=== PATIENT | female | born 1980 | race African-American/Black ===

== ENCOUNTER 2023-12-10 18:05 | Emergency (ER) | payer MEDICARE, SELFPAY ==
[2023-12-10 18:16] VITALS: BP 139/90
[2023-12-10 18:25] LABS: Glucose - Point of Care 442 mg/dl (70-99)
[2023-12-10 18:55] LABS: % Basophils 0.4 % (0-2); % Eosinophils 0.3 % (0-6); % Immature Granulocytes 0.5 % (0-0.5); % Monocytes 4.2 % (1.7-9.3); % Neutrophils 56.6 % (42.2-75.2); Absolute Immature Granulocytes 0.1 10^3/uL (0-0.05); Absolute Lymphocytes 3.9 10^3/uL (1.2-3.4); Absolute Monocytes 0.4 10^3/uL (0.1-0.6); Absolute Neutrophils 5.8 10^3/uL (1.4-6.5); Hematocrit 40.1 % (37.0-47.0); Hemoglobin 13.3 g/dL (12.0-16.0); Mean Corp Hgb Conc. 33.2 g/dL (33.0-37.0); Mean Corpuscular Hgb 25.9 pg (27.0-31.0); Mean Corpuscular Volume 78.2 fL (81.0-99.0); Nucleated Red Blood Cells % 0 %; Platelet Count 165 10^3/uL (130-400); Red Blood Cell Count 5.13 10^6/uL (4.20-5.40); Red Cell Dist. Width 14.8 % (11.5-14.5); White Blood Cell Count 10.2 10^3/uL (4.8-10.8)
[2023-12-10 19:09] LABS: Urine Albumin Negative (Neg - Trace); Urine Bilirubin Negative (Negative); Urine Character Clear (Clear); Urine Color Yellow; Urine Glucose 3+ (Negative); Urine Ketone Trace (Negative); Urine Leukocyte Negative (Negative); Urine Nitrite Negative (Negative); Urine Occult Blood 1+ (Negative); Urine Specific Gravity 1.015 (<1.030); Urine Urobilinogen Negative (Neg - 1+)
[2023-12-10 19:15] LABS: ALT (SGPT) 22 U/L (0-35); AST (SGOT) 26 U/L (14-36); Albumin 4.4 g/dl (3.5-5.0); Alkaline Phosphatase 82 U/L (38-126); Blood Urea Nitrogen 15 mg/dl (7-17); Calcium 9.6 mg/dl (8.4-10.2); Carbon Dioxide 20 mmol/L (22-30); Chloride 98 mmol/L (98-107); Glucose 464 mg/dl (70-99); Potassium 5.1 mmol/L (3.5-5.1); Sodium 129 mmol/L (135-145); Total Bilirubin 0.7 mg/dl (0.2-1.3); Total Protein 7.8 g/dl (6.3-8.2); eGFR > 60.00
[2023-12-10 19:20] LABS: Urine Bacteria Few (Negative); Urine White Cell 0-2 /HPF (0-5)
--- NOTE | 2023-12-10 19:20 | ED.GENMED ---
History of Present Illness
General
Chief Complaint: Blood Sugar Problem
Source: patient
Exam Limitations: none
Time Seen by Provider: 12/10/23 18:44
Travel History
Have you had any contact with someone who has COVID-19?: No
Do you have any symptoms of coronavirus? Fever > 100 degrees, chills, cough, shortness of breath, sore throat, loss of taste or smell, muscle aches, or headache?: No
History of Present Illness
History of Present Illness:
This is a 43 year old female that comes in with c/o hyperglycemia. States that her blood sugar has been running over 400 as her monitor won't read her blood sugar. States that she has had frequent Urination and thirst. State that she was off her
medications for 4 weeks as she states they were not in stock. Patient went to see the PCP yesterday. States that she was on Wegovy and she restarted this on Friday. States that she was started on Pioglitazone yesterday and Lispro yesterday. States
that she has a headache with some brain fog. Denies any fever, chills, chest pain, SOB, abd pain, nausea, vomiting, diarrhea, dizziness, urinary burning.
Past History
Past History
ED Past Medical History: HTN, Hypercholesterolemia and IDDM
ED Past Surgical History: Orthopedic (Bilateral knee surgery)
Social History
Tobacco: Non-smoker
Alcohol: Occasional
Personal: Single
Living: with family
Review of Systems
Review of Systems
All Other Systems: ROS reviewed and negative except as documented in HPI and ROS
Constitutional: Reports no symptoms; Denies fever or chills
EENT: Reports no symptoms
Respiratory: Reports no symptoms; Denies cough or trouble breathing
Cardiac: Reports no symptoms; Denies chest pain
ABD/GI: Reports no symptoms; Denies abdominal pain, nausea, vomiting or diarrhea
: Reports frequency; Denies dysuria or urgency
Musculoskeletal: Reports no symptoms
Skin: Reports no symptoms
Neurological: Reports headache and other (Brain fog); Denies dizzy
Psychiatric: Reports no symptoms
Phy Exam
General Physical Exam
General Presentation: well appearing and no apparent distress
General age: appears stated age
General Skin: warm and dry
General Habitus: normal
General Mental: alert
General Hydration: appears well hydrated
ENT Exam
ENT Exam: TM's normal, pharynx normal and neck supple
Eye Exam
Eye Exam: EOMI
Cardiovascular Exam
Cardiovascular Exam: regular rate/rhythm, no edema, no murmur and normal peripheral pulses
Pulmonary Exam
Pulmonary Exam: lungs clear, no respiratory distress, no rales, chest non tender, no crackles, no rhonchi, no wheezing and no cough
Gastrointestinal Exam
Gastrointestinal Exam: normal bowel sounds, non tender, soft, no organomegaly, no pulsatile mass and non distended
Musculoskeletal Exam
Musculoskeletal Exam: full ROM and no edema
Skin Exam
Skin Exam: normal color, warm/dry, no rash and no petechia
Psychiatric Exam
Psychiatric Exam: normal mood/affect
Course
Orders/Labs/Results
Orders:
Orders
12/10/23 18:44
B-Hydroxybutyrate Urgent
Comment: ADD ON
Complete Blood Count/With Diff Urgent
Comprehensive Metabolic Panel Urgent
12/10/23 19:00
Urinalysis Reflex To Culture Urgent
Date Specimen was Collected: 12/10/23
Time Specimen was Collected: 18:57
Urine Microscopic Reflex Cult Urgent
12/10/23 19:18
0.9% Sodium Chloride 1000 ml [Nss] 1,000 ml IV BOLUS
Insulin Aspart [NOVOLOG vial] 14 units SC NOW STA
12/10/23 19:19
Add On- LAB Urgent
Tests Added?: B-hydroxybutyrate
12/10/23 20:32
Glucose Urgent
12/10/23 21:49
Acetaminophen [Tylenol] 1,000 mg .ROUTE .STK-MED ONE
12/10/23 21:51
Acetaminophen [Tylenol] 1,000 mg PO NOW STA
Abnormal Lab Results
12/10/23 12/10/23 12/10/23
18:23 18:44 19:00
MCV 78.2 L fL
(81.0-99.0)
MCH 25.9 L pg
(27.0-31.0)
RDW 14.8 H %
(11.5-14.5)
Abs Immat Gran (auto) 0.1 H 10^3/uL
(0-0.05)
Absolute Lymphs (auto) 3.9 H 10^3/uL
(1.2-3.4)
Sodium 129 L mmol/L
(135-145)
Carbon Dioxide 20 L mmol/L
(22-30)
Glucose 464 H* mg/dl
(70-99)
Urine Ketones Trace A
(Negative)
Ur Occult Blood Reflex 1+ A
(Negative)
Urine RBC 3-6 A /HPF
(0-2)
Urine Bacteria (Reflex) Few A
(Negative)
Urine Glucose 3+ A
(Negative)
POC Glucose 442 H mg/dl
(70-99)
12/10/23 12/10/23 12/10/23
20:26 20:32 22:40
MCV
MCH
RDW
Abs Immat Gran (auto)
Absolute Lymphs (auto)
Sodium
Carbon Dioxide
Glucose 370 H mg/dl
(70-99)
Urine Ketones
Ur Occult Blood Reflex
Urine RBC
Urine Bacteria (Reflex)
Urine Glucose
POC Glucose 401 H mg/dl 268 H mg/dl
(70-99) (70-99)
12/10/23 18:44
12/10/23 20:32
Anemia, Hyponatremia, Carbon dioxide low, Hyperglycemia, Urine negative for infection. Anion gap 11. B-Hydroxybutyrate 0.19
Vital Signs
Initial and Last Documented VS:
Initial Vital Signs
Temp Pulse Resp BP Pulse Ox
98.6 F 105 20 139/90 97
12/10/23 18:16 12/10/23 18:16 12/10/23 18:16 12/10/23 18:16 12/10/23 18:16
Last Documented Vital Signs
Temp Pulse Resp BP Pulse Ox
98.6 F 95 18 133/75 97
12/10/23 18:16 12/10/23 20:32 12/10/23 20:32 12/10/23 20:32 12/10/23 20:32
MDM/Problems Addressed
Differential Diagnosis Includes:
Hyperglycemia,
MDM/Problems Addressed:
This is a 43 year old female that comes in wit c/o hyperglycemia. States that she was off her medication for 4 weeks as they were out of stock. State that she stated back on on Friday and she saw her PCP yesterday who started her on
Pioglitozone and Lispro. States that today her blood sugars are still elevated.
Will check labs, give IV fluids and insulin as needed.
Back into see patient. Patient sugar is slowly coming down. Patient is due for her night time medication and has her Pen in the car. Significant other going to get pen so patient can take her night time dose.
Back into see patient. Patient BS is down to 268. Explained to patient that she needs to increase her water intake to 8-8oz glasses daily. Her Sodium is a little low and she can try some boxed food or canned soup. Patient to call her PCP tomorrow
and notify her of her blood sugars as they may wish to increase her Insulin or change other medication. Patient to return with any concerns.
Chronic conditions affecting care: DM
Acute Exacerbation and/or Progression of Chronic Illness: DM
*Pulse Oximetry
Patient hypoxic: no
*EKG
Interpreted by ED Provider?: NA
Rate: EKG- N/A
*Division Operations Specialist Interpretation
Rate: Division Operations Specialist- N/A
*Critical Care Note
Total Time (30-74mins, 75-104mins- exclusive of procedures): Not Applicable
ED Attending Note
-
Portions of this chart may have been created with voice recognition software.� Occasional wrong word or��sound alike� substitutions may have occurred due to the inherent limitations of voice recognition software.
Discharge Plan
Departure
Patient Disposition: Home (Routine Discharge)
Date of Disposition: 12/10/23
Time of Disposition: 22:55
Patient with high blood pressure during this ER visit?: Yes
Condition: Good
Covid-19: Not Applicable
Discharge Problem:
Hyperglycemia due to type 1 diabetes mellitus
Instructions: Diabetes Type 1, Adult (DC), BLOOD PRESSURE
Prescriptions:
No Action
pioglitazone 15 mg tablet
15 mg PO DAILY
doxycycline hyclate 100 mg capsule
100 mg PO BID
valsartan-hydrochlorothiazide 80-12.5 mg tablet
1 tab PO HS
spironolactone 50 mg tablet
50 mg PO HS
insulin lispro 100 unit/mL insulin pen
12 unit SC AC
rosuvastatin 5 mg tablet
5 mg PO HS
Wegovy 0.25 mg/0.5 mL pen injector
0.25 mg SC TIDWELL
Referrals:
Aviva Cassidy MD [Family Provider] - Tomorrow
Activity Restrictions/Additional Instructions:
As discussed, your blood sugar is now down to 268. Please call your family doctor tomorrow as notify her of your blood sugars. She may wish to increase your Insulin or other medication. Your sodium level is also slightly low and you will need to
have your blood work rechecked in 2 days to make sure this is not going any lower. This can be ordered by your Family doctor. Try eating some canned soup or boxed food as this is higher in sodium. Please do not drink more then 8-8oz glasses of water
as more with will continue to wash out your sodium. IF YOU HAVE ANY OTHER CONCERNS PLEASE RETURN TO THE EMERGENCY ROOM.
Interventions
Interventions:
*Risk Screen - Suicide Last Done: 12/10/23 18:16
*General Assessment Last Done: 12/10/23 18:16
*Neglect/Abuse Screening Last Done: 12/10/23 18:16
ED- Fall Risk Assessment Last Done: 12/10/23 21:05
*ED COVID-19 Vaccine History Last Done: 12/10/23 21:05
ED- Neurological Assessment Last Done: 12/10/23 18:56
Discharge Date and Time
Print Language: BENGALI
[2023-12-10] MEDS: NOVOLOG vial 14 UNITS SC (19:29)
[2023-12-10] MEDS: NSS 1000 IV (19:29)
[2023-12-10 19:50] LABS: B-Hydroxybutyrate 0.19 mmol/L (0.02-0.27)
[2023-12-10 20:27] LABS: Glucose - Point of Care 401 mg/dl (70-99)
[2023-12-10 20:32] VITALS: BP 133/75
[2023-12-10 20:52] LABS: Glucose 370 mg/dl (70-99)
[2023-12-10] MEDS: TYLENOL 1000 MG PO (21:51)
[2023-12-10 22:42] LABS: Glucose - Point of Care 268 mg/dl (70-99)
[2023-12-10 23:09] VITALS: BP 118/82
== END 2023-12-10 23:09 | disposition home or self-care (01) ==
LOC: EMR 18:05
PROVIDERS: Clinical Nurse Specialist Family Health; EMERGENCY PHYSICIAN Emergency Medicine; FAMILY PHYSICIAN Family Medicine
DX: E10.65 Type 1 diabetes mellitus with hyperglycemia (principal); R51.9 Headache, unspecified; R35.0 Frequency of micturition; I10 Essential (primary) hypertension; E78.00 Pure hypercholesterolemia, unspecified; Z79.4 Long term (current) use of insulin
CPT/HCPCS: 99284; 96360; 96372; 80053; 81003; 81015; 82010; 82947; 82962; 85025